=== PATIENT | male | born 1945 | race Two or more races ===

== ENCOUNTER → 2020-11-25 | Outpatient (CLI) | payer MEDICARE | END | disposition home or self-care (01) | LOC: LAB 17:24 | PROVIDERS: ATTEND Urology | DX: N39.0 Urinary tract infection, site not specified (principal) | CPT/HCPCS: 87086; 87088; 87186 ==

== ENCOUNTER → 2020-12-08 | Outpatient (CLI) | payer MEDICARE ==
[2020-12-08 13:56] LABS: BUN/Creatinine Ratio 19.7; Calcium 8.8 mg/dL (8.5-10.1); Potassium 4.3 mmol/L (3.5-5.1)
== END | disposition home or self-care (01) ==
LOC: LAB 13:11
PROVIDERS: ATTEND Urology
DX: N41.9 Inflammatory disease of prostate, unspecified (principal)
CPT/HCPCS: 36415; 80048; 84153